=== PATIENT | female | born 1960 | race Caucasian/White ===

== ENCOUNTER 2018-08-18 14:04 | Emergency (ER) | payer MEDICAID, OTHER ==
[~2018-08-18] VITALS: Ht 170.2 cm; Wt 104.0 kg
[2018-08-18 14:08] VITALS: Ht 170.2 cm; Wt 104.0 kg
[2018-08-18] MEDS ORDERED: SODIUM CHLORIDE 0.9% 1L BAG IV* STA (14:37)
[2018-08-18] MEDS ORDERED: ALBUTEROL 0.083% (NEB) 2.5 MG/3 ML AMP HHN STA (14:37)
--- NOTE | 2018-08-18 14:43 | ERD ---
ER Documentation Chief Complaint Chief Complaint SOB, cough, chest congestion, body aches X 3 wks HPI This is a 58-year-old female with a 30+ year tobacco smoking history who presents ED with cough with sputum production x3 weeks. Patient admits to some shortness of breath, body aches, wheezing and chest congestion. Admits to some dyspnea on exertion with onset of coughing. Denies chest pain, fever, chills, nausea, vomiting, diarrhea, constipation, abdominal pain, hematemesis, hemoptysis, melena, mental status and all other symptoms. No known drug allergies. Denies history of hypertension, diabetes or high cholesterol. Denies history of COPD. Patient is unsure what her normal oxygen saturation is. ROS All systems reviewed and are negative except as per history of present illness. Allergies Allergies: Coded Allergies: No Known Allergy (Unverified , 08/18/18) FmHx Family History: No diabetes Physical Exam Vitals Vital Signs Date Temp Pulse Resp B/P (MAP) Pulse Ox O2 O2 Flow FiO2 Time Delivery Rate 08/18/18 98.9 85 22 182/88 99 Room Air 15:20 (119) 08/18/18 91 22 94 21 15:12 08/18/18 99.3 96 30 150/75 93 14:08 (100) Physical Exam Physical Exam Vitals signs: Reviewed by me. General: Well developed, well nourished, in no acute distress. Patient is awake and alert. Head: Normocephalic, atraumatic. Eyes: Normal conjunctiva, Pupils PERRLA, EOM intact grossly ENT: Pharynx is clear, Moist mucous membranes, external ears, nose and mouth normal, poor dentition Neck: Supple, no masses, lymphadenopathy or JVD Respiratory: Distant breath sounds with some possible mild wheezing, no rales rhonchi, no labored breathing no distress, Cardiovascular: RRR, no murmurs, rubs, or gallops Abdominal: Soft, non-tender, non-distended, no peritoneal signs : Deferred MSK: No edema, no unilateral swelling, 5/5 strength Back: No midline tenderness. No flank tenderness Neurologic: Alert and oriented, moving all extremities, normal speech, no focal weakness, no cerebellar signs. Normal mentation Skin: warm and dry, No rash Psych: Normal mood Result Diagram: 08/18/18 1508 08/18/18 1508 Results 24 hrs Laboratory Tests Test 08/18/18 15:08 08/18/18 15:10 White Blood Count 10.0 10^3/ul Red Blood Count 4.67 10^6/ul Hemoglobin 14.4 g/dl Hematocrit 44.8 % Mean Corpuscular Volume 95.9 fl Mean Corpuscular Hemoglobin 30.8 pg Mean Corpuscular Hemoglobin Concent 32.1 g/dl Red Cell Distribution Width 13.6 % Platelet Count 142 10^3/UL Mean Platelet Volume 10.7 fl Immature Granulocytes % 0.700 % Neutrophils % 83.7 % Lymphocytes % 8.6 % Monocytes % 5.7 % Eosinophils % 0.9 % Basophils % 0.4 % Nucleated Red Blood Cells % 0.0 /100WBC Immature Granulocytes # 0.070 10^3/ul Neutrophils # 8.4 10^3/ul Lymphocytes # 0.9 10^3/ul Monocytes # 0.6 10^3/ul Eosinophils # 0.1 10^3/ul Basophils # 0.0 10^3/ul Nucleated Red Blood Cells # 0.0 10^3/ul Prothrombin Time 11.7 Sec Prothrombin Time Ratio 0.9 INR International Normalized Ratio 0.85 Activated Partial Thromboplast Time 27.3 Sec Urine Color YELLOW Urine Clarity SLIGHTLY CLOUDY Urine pH 7.0 Urine Specific [place] 1.019 Urine Ketones NEGATIVE mg/dL Urine Nitrite NEGATIVE mg/dL Urine Bilirubin NEGATIVE mg/dL Urine Urobilinogen NEGATIVE mg/dL Urine Leukocyte Esterase NEGATIVE Fredo/ul Urine Microscopic RBC 0 /HPF Urine Microscopic WBC 1 /HPF Urine Mucus FEW /HPF Urine Hemoglobin NEGATIVE mg/dL Urine Glucose NEGATIVE mg/dL Urine Total Protein NEGATIVE mg/dl Sodium Level 140 mmol/L Potassium Level 4.3 mmol/L Chloride Level 105 mmol/L Carbon Dioxide Level 25 mmol/L Anion Gap 10 Blood Urea Nitrogen 14 mg/dl Creatinine 0.64 mg/dl Est Glomerular Filtrat Rate mL/min > 60 mL/min Glucose Level 145 mg/dl Calcium Level 9.2 mg/dl Total Bilirubin 0.5 mg/dl Direct Bilirubin 0.00 mg/dl Indirect Bilirubin 0.5 mg/dl Aspartate Amino Transf (AST/SGOT) 25 IU/L Alanine Aminotransferase (ALT/SGPT) 14 IU/L Alkaline Phosphatase 72 IU/L Troponin I < 0.012 ng/ml Total Protein 7.0 g/dl Albumin 4.0 g/dl Globulin 3.00 g/dl Albumin/Globulin Ratio 1.33 POC Venous Lactate 1.8 mmol/L Current Medications Medications Dose Sig/Johana Start Time Status Last (Trade) Ordered Route PRN Stop Time Admin Dose Reason Admin Sodium 3,120 ml BOLUS OVER 2 08/18/18 DC 08/18/18 Chloride HOURS STAT 14:37 14:11 (NS) IV* 08/18/18 14:41 Albuterol 5 mg ONCE STAT 08/18/18 DC 08/18/18 (Proventil HHN 14:37 15:11 0.083% (Neb)) 08/18/18 14:41 Ipratropium 0.5 mg ONCE ONCE 08/18/18 DC 08/18/18 [place] [facility] 15:00 15:11 (Atrovent 08/18/18 15:01 0.02% (Neb)) Promethazine 5 ml ONCE ONCE 08/18/18 DC 08/18/18 HCl/ PO 15:00 15:34 Dextromethorp 08/18/18 15:01 ortega (Phenergan-Dm ) Procedures/MDM EKG, MONITORS, & DIAGNOSTIC IMAGING: [place] [id number] Radiology Main Line: [phone] DIAGNOSTIC IMAGING REPORT Patient: ARNIE SINGH : 1960 Age: 58 Sex: F MR #: [id number] DOS: 08/18/18 1437 Ordering MD: MARKUS UMANZOR PA-C Location: [facility] Room/Bed: PROCEDURE: XR Chest 1 view. CLINICAL INDICATION: Cough. TECHNIQUE: Single view of the chest was obtained. COMPARISON: None. FINDINGS: Mediastinum: Enlarged heart. Calcified atherosclerosis in the aorta. Lungs: Mild central pulmonary vascular congestion and interstitial prominence in both lungs. Scattered atelectasis in both lungs. Hyperexpanded lungs. No consolidations. No pneumothorax. Osseous structures: Intact. Osteopenia. Degenerative changes in the shoulders. Other: None. IMPRESSION: Cardiomegaly with calcified atherosclerosis in the aorta. Mild central pulmonary vascular congestion and interstitial prominence in both lungs. Scattered atelectasis in both lungs. Hyperexpanded lungs. RPTAT: AA .Feng Castro MD, MD Date Time Electronically viewed and signed by .Feng Castro MD, MD on 08/18/2018 15:40 .P/ CC: MARKUS UMANZOR PA-C [id number] EKG read by [facility] Rate/Rhythm: Regular rate and rhythm at a rate of 83 Intervals: Normal Impression: No evidence of ischemia or arrhythmia No ST elevation, no peak T waves, no widened QRS, no RI interval prolongation, no QT interval prolongation LAB INTERPRETATION: CBC shows no evidence of hemorrhage, elevated neutrophil percent of 83.7, no elevated WBC, Coagulation study showed no concerning coagulopathy Urinalysis unremarkable Lactic acid 1.8 Chemistry shows no evidence of significant electrolyte abnormalities or renal insufficiency Liver function test shows no evidence of acute biliary or hepatic dysfunction Lipase shows no evidence of acute pancreatitis Cardiac biomarkers show no evidence of acute myocardial injury or coronary ischemia Flu negative ER COURSE: The patient was given BREATHING treatment in the emergency department The medication was well tolerated and the patient reports improvement in symptoms. The patient was stable throughout ED course. I kept the patient and/or family informed of laboratory and diagnostic imaging results throughout the emergency room course. The patient was promptly evaluated and a treatment plan was devised based on H&P and other data. This plan was discussed with the patient who agreed and had no further questions or concerns prior to discharge. MEDICAL DECISION MAKING: This is a 58-year-old female with a history of a 30+ year smoking history who presents ED with fever and cough x3 weeks. Initially sepsis protocol was initiated but lactic acid has come back normal and she has no elevated white count. The sepsis protocol was discontinued. Chest x-ray does not show any pneumonia. Symptoms are most likely consistent with acute bronchitis. Patient was given breathing treatment in the emergency department and reports feeling better. Lung sounds have improved after breathing treatment. Low suspicion for pneumonia, as lung sounds are clear at this time and given no evidence of pneumonia on chest x-ray. Oxygen saturation is normal at this time and patient does not have any respiratory distress. Low suspicion for other cardiopulmonary emergency such as pulmonary embolism, pneumothorax, tension pneumothorax, pleural effusion, pneumothorax, CHF, aortic aneurysm or other cardiopulmonary emergencies. No evidence of sepsis. Patient's vitals are stable he can be managed with close outpatient follow-up. Advised patient to follow-up with primary care in the next 48 hours. Return to ED with any worsening symptoms Advised patient to quit smoking Discussed case with overseeing physician Dr. Morgan who has looked over her lab work, imaging and EKG and agrees with plan that patient can be managed with close outpatient follow-up DISPOSITION PLAN: We discussed follow up with the patient's primary care doctor within 24 to 48 hours. Patient counseled regarding my diagnostic impression and care plan. Prior to discharge all questions answered. Pt agrees with treatment plan and understands strict return precautions. Precautionary instructions provided including instructions to return to the ER if not improving or for any worsening or changing symptoms or concerns. SPECIALIST FOLLOW UP RECOMMENDED: None Patient has been advised to follow up with primary care in 1-2 days. Disclaimer: Inadvertent spelling and grammatical errors are likely due to EHR/dictation software use and do not reflect on the overall quality of patient care. Also, please note that the electronic time recorded on this note does not necessarily reflect the actual time of the patient encounter. Departure Diagnosis: Primary Impression: Acute bronchitis Bronchitis organism: unspecified organism Qualified Codes: J20.9 - Acute bronchitis, unspecified Condition: Stable Patient Instructions: Acute Bronchitis, Getting Support for Quitting Smoking, Health Effects of Smoking Referrals: [facility] Additional Instructions: Patient advised to return to the ED immediately for new or worsening symptoms. Patient advised to follow up with primary care provider in the next 24-48 hours. Patient verbalized understanding and agrees with treatment plan and course of action. If patient has no primary care they may follow up with one of the community clinics listed on the following page or one of the options listed below [facility] [address] [place] [address] or [facility] [address] [place] [address] or [facility] [address] [place] [address] MARKUS UMANZOR PA-C Aug 18, 2018 14:43
[2018-08-18] MEDS ORDERED: IPRATROPIUM (NEB) 0.5 MG/2.5 ML AMP INH ONE (15:00)
[2018-08-18] MEDS ORDERED: PROMETHAZINE/DM (CUP) PO ONE (15:00)
[2018-08-18] MEDS ORDERED: ALBU8.5H8 INH (16:38)
[2018-08-18] MEDS ORDERED: D-ME473S2 PO (16:38)
[2018-08-18] MEDS ORDERED: AZIT250T PO (16:38)
[2018-08-18] MEDS ORDERED: ADV10050 INHALATION (16:38)
[2018-08-18 17:18] VITALS: BP 166/81; PULSE 87; RESP 20
== END 2018-08-18 17:19 | disposition home or self-care (01) ==
LOC: FTE 14:04
DX: J20.9 Acute bronchitis, unspecified (principal); R50.9 Fever, unspecified; Z87.891 Personal history of nicotine dependence
CPT/HCPCS: 36415; 71045; 80053; 81001; 83605; 84484; 85025; 85610; 85730; 87040; 87086; 87400; 93005; 94664; J7030; Z7502; Z7610; 81003